=== PATIENT | female | born 2000 | race Caucasian/White ===

== ENCOUNTER → 2020-05-14 | Outpatient (CLI) | payer MEDICAID ==
--- NOTE | 2020-05-14 17:31 | Diagnostic Imaging Report ---
INDICATION: Anatomy survey. TECHNIQUE: Multiple real-time grayscale images were obtained over the gravid uterus. COMPARISON: None FINDINGS: CLINICAL DATES: Gestational age 28 weeks, 4 days, with an SAURABH of 08/02/2020. Number: Single live intrauterine Presentation: Breech Placenta: Posterior/fundal Amniotic Fluid: TATYANA is visually within normal limits. Cervical length: 3.3 cm Cerebellum: visualized Lateral ventricles: visualized Cavum septum pellucidum: visualized Nasal Bone: visualized Face: visualized Stomach: visualized Kidneys: visualized Bladder: visualized Three vessel cord: visualized Cord insertion: visualized 4 chamber heart: visualized outflow tracts: visualized Spine, upper: visualized Spine, lower: visualized Upper extremities: visualized Lower extremities: visualized Hands: Visualized, however not all fingers are well seen. Feet: Visualized, however not all toes are well seen. Biometrical measurements are as follows: Biparietal 6.23 cm, age 25 weeks 2 days. Head circumference 24.20 cm, age 26 weeks 2 days. Abdominal circumference 22.21 cm, age 26 weeks 5 days. Femur length 5.44 cm, age 28.6 weeks 28 days. Sonographic estimate age: 26 weeks 6 days. Sonographic estimated date of delivery: 08/14/20. Estimated Weight: 1049 gm (+/- 153 gm). LMP percentile: 6%. heart rate: 152 beats per minute. number: 1 of 1. IMPRESSION: 1. Single live intrauterine at approximately 26 weeks, 6 days, with an SAURABH of 08/14/2020. These are discordant with the clinical dates. Recommend continued follow-up. 2. No abnormalities are seen at this time. 3. Breech presentation. 4. Visually normal TATYANA; however, total TATYANA was not acquired by the public health social worker during the exam. Recommend either largest vertical pocket or total TATYANA measurements on the follow-up exam. Dictated by: Dictated on workstation # [id number]
== END ==
LOC: RAD 14:18
PROVIDERS: ATTEND Obstetrics & Gynecology
DX: O32.1XX0 Maternal care for breech presentation, not applicable or unspecified (principal); Z3A.26 26 weeks gestation of pregnancy
CPT/HCPCS: 76805

== ENCOUNTER 2020-07-26 02:31 | Inpatient (IN) | payer MEDICAID ==
[~2020-07-26] VITALS: Ht 165.1 cm; Wt 111.4 kg
[2020-07-26] VITALS (50 sets, daily range): BP systolic 96–160; BP diastolic 55–92
[2020-07-26] MEDS ORDERED: D5 LR IV SOLUTION 1,000 ML IV ONE (08:02)
[2020-07-26] MEDS: D5 LR IV SOLUTION 1,000 ML IV SCH ×2 (08:10→16:12)
[2020-07-26] MEDS ORDERED: OXYTOCIN PRE-MIX DRIP 500 ML IV SCH ×2 (08:30→21:00)
[2020-07-26 09:15] LABS: BILIRUBIN,URINE NEGATIVE (NEGATIVE); CLARITY,URINE CLEAR; COLOR,URINE YELLOW; GLUCOSE, URINE (UA) TRACE (NEGATIVE); KETONES,URINE NEGATIVE (NEGATIVE); LEUKOCYTE ESTERASE ,URINE 1+ (NEGATIVE); NITRITE,URINE NEGATIVE (NEGATIVE); PROTEIN,URINE NEGATIVE (NEGATIVE)
[2020-07-26 09:17] LABS: BASOPHILS # (AUTO) 0.1 10^3/uL (0.0-0.1); BASOPHILS % (AUTO) 1 % (0-10); EOSINOPHILS # (AUTO) 0.1 10^3/uL (0.0-0.3); EOSINOPHILS % (AUTO) 1 % (0-10); HEMATOCRIT 35 % (35-52); HEMOGLOBIN 10.9 g/dL (11.5-16.0); LYMPHOCYTES % (AUTO) 17 % (12-44); MEAN CORPUSCULAR HEMOGLOBIN 26 pg (25-34); MEAN CORPUSCULAR HGB CONC 31 g/dL (32-36); MEAN CORPUSCULAR VOLUME 83 fL (80-99); MEAN PLATELET VOLUME 9.7 fL (9.0-12.2); MONOCYTES # (AUTO) 0.9 10^3/uL (0.0-1.0); MONOCYTES % (AUTO) 8 % (0-12); NEUTROPHILS # (AUTO) 8.6 10^3/uL (1.8-7.8); NEUTROPHILS % (AUTO) 72 % (42-75); PLATELET COUNT 359 10^3/uL (130-400); WHITE BLOOD COUNT 11.9 10^3/uL (4.3-11.0)
[2020-07-26 10:03] LABS: BACTERIA,URINE MODERATE /HPF
--- NOTE | 2020-07-26 10:24 | History & Physical-OB ---
OB - Chief Complaint & HPI Date/Time Date of Admission: Date of Admission: July 26, 2020 at 06:23 Date seen by a Provider: July 26, 2020 Time Seen by a Provider: 08:00 Chief Complaint/History OB-Reason for Admission/Chief: Induction of Labor Hx : 2 Hx Para: 1 Expected Date of Delivery: August 02, 2020 Gestational Age in Weeks: 39 Gestational Age in Days: 0 Admission Nurse Assessment Rev: Yes History of Labs GBS neg Allergies and Home Medications Allergies Coded Allergies: No Known Drug Allergies (Unverified , 07/26/20) Home Medications No Active Prescriptions or Reported Meds Patient Home Medication List Home Medication List Reviewed: Yes OB - History Hx of Present Care: Yes Ultrasounds: Normal mid trimester US Obstetrical Complications: None Medical Complications: None Patient Past Medical History n/a OB - Admission Exam Physical Exam Vitals: Vital Signs 07/26/20 07/26/20 08:52 09:50 Temp 36.2 Pulse 94 Resp 18 B/P (MAP) 126/58 (80) O2 Delivery Room Air HEENT: NCAT Heart: Rhythm Normal Lungs: Clear Abdomen: Gravid Extremities: Normal Reflexes: Normal Cervical Dilatation: 3cm Effacement: 75% Station: -1 Membranes: Intact Heart Rate: 130's Accelerations: Accelerations Present Decelerations: No Decelerations Short Term Variability: Present Rehabilitation Therapist Variability: Average (6-25) Contractions on Admission: 6-10 Minutes Apart Intensity: Mild Castañeda Scoring Tool (Modified) Dilation (cm): 3-4cm (2) Effacement (%): 51-79% (2) Descent/Station: -1,0 (2) Cervix Consistency: Soft (2) Cervix Position: Anterior (2) Add 1 point for: Each previous vaginal delivery (1) Castañeda Score: 11 Labs Laboratory Tests Test 07/26/20 06:30 07/26/20 09:04 Range/Units Urine Color YELLOW Urine Clarity CLEAR Urine pH 7.0 5-9 Urine Specific [place] 1.025 H 1.016-1.022 Urine Protein NEGATIVE NEGATIVE Urine Glucose (UA) TRACE H NEGATIVE Urine Ketones NEGATIVE NEGATIVE Urine Nitrite NEGATIVE NEGATIVE Urine Bilirubin NEGATIVE NEGATIVE Urine Urobilinogen 0.2 < = 1.0 MG/DL Urine Leukocyte Esterase 1+ H NEGATIVE Urine RBC (Auto) TRACE-I NEGATIVE Urine RBC NONE /HPF Urine WBC 10-25 H /HPF Urine Squamous Epithelial Cells 5-10 /HPF Urine Crystals NONE /LPF Urine Bacteria MODERATE H /HPF Urine Casts NONE /LPF Urine Mucus NEGATIVE /LPF Urine Culture Indicated YES White Blood Count 11.9 H 4.3-11.0 10^3/uL Red Blood Count 4.24 3.80-5.11 10^6/uL Hemoglobin 10.9 L 11.5-16.0 g/dL Hematocrit 35 35-52 % Mean Corpuscular Volume 83 80-99 fL Mean Corpuscular Hemoglobin 26 25-34 pg Mean Corpuscular Hemoglobin Concent 31 L 32-36 g/dL Red Cell Distribution Width 17.4 H 10.0-14.5 % Platelet Count 359 130-400 10^3/uL Mean Platelet Volume 9.7 9.0-12.2 fL Immature Granulocyte % (Auto) 2 % Neutrophils (%) (Auto) 72 42-75 % Lymphocytes (%) (Auto) 17 12-44 % Monocytes (%) (Auto) 8 0-12 % Eosinophils (%) (Auto) 1 0-10 % Basophils (%) (Auto) 1 0-10 % Neutrophils # (Auto) 8.6 H 1.8-7.8 10^3/uL Lymphocytes # (Auto) 2.0 1.0-4.0 10^3/uL Monocytes # (Auto) 0.9 0.0-1.0 10^3/uL Eosinophils # (Auto) 0.1 0.0-0.3 10^3/uL Basophils # (Auto) 0.1 0.0-0.1 10^3/uL Immature Granulocyte # (Auto) 0.2 H 0.0-0.1 10^3/uL OB - Assessment/Plan/Diagnosis Assessment Assessment: induction of labor Admission Dx 19 yo @ 39 weeks Elective IOL GBS neg Admission Status: Inpatient Order (span 2 midnights) Reason for Inpatient Admission: Induction at 39 weeks Plan Plan: Induction Induction Method: per Pitocin Protocol WOODROW PRUETT DO July 26, 2020 10:24
[2020-07-26] MEDS ORDERED: CATHETER FLUSH 10 ML SYR IV SCH (14:00)
[2020-07-26] MEDS ORDERED: LIDOCAINE/EPI 2% 1:200,00 (XYLOCAINE) 20 ML VIAL ONE (19:18)
[2020-07-26] MEDS ORDERED: TETANUS,DIPTH,PERTUSS P/F (BOOSTRIX) 0.5 ML VIAL IM ONE (21:00)
[2020-07-26] MEDS ORDERED: BENZOCAINE/MENTHOL (DERMOPLAST) 56 ML CAN TP PRN (21:00)
[2020-07-26] MEDS ORDERED: MEASLES,MUMPS,RUBELLA 1 EA INJ SQ ONE (21:00)
[2020-07-26] MEDS ORDERED: HYDROcodone/APAP 5 MG/325 MG (LORTAB) TAB PO PRN (21:00)
[2020-07-26] MEDS ORDERED: WITCH HAZEL(TUCKS) 40 EA JAR TOP PRN (21:00)
[2020-07-26] MEDS ORDERED: DIBUCAINE 1% OINTMENT 30 GM TUBE TOP PRN (21:00)
--- NOTE | 2020-07-26 21:01 | OB Labor & Delivery Record ---
L&D History Date of Service Date of Service: July 26, 2020 History Expected Date of Delivery: August 02, 2020 Gestational Age in Weeks: 39 Hx : 2 Hx Para: 1 Complications Events: Routine care Operative Indications (Cesarea: N/A-Vaginal Delivery Intrapartal Events: None L&D Stage1 Stage One Onset of Labor - Date: July 26, 2020 Monitors and Tracing Monitor Mode: Internal Heart Rate: 135 Monitor Accelerations: Uniform Monitor Decelerations: None Station: -1 Chemistry Tutor Variability: Average (6-10) Short Term Variability: Present Presentation: Vertex Vital Signs VS - Last 72 Hours, by Label 07/26/20 07/26/20 07/26/20 07/26/20 08:52 09:20 09:34 09:50 Temp 36.2 Pulse 139 105 98 94 Resp 18 18 18 18 B/P (MAP) 132/87 (102) 126/77 (93) 112/64 (80) 126/58 (80) O2 Delivery Room Air Room Air Room Air Room Air 07/26/20 07/26/20 07/26/20 07/26/20 10:04 10:20 10:35 11:02 Pulse 104 96 105 90 Resp 18 18 18 18 B/P (MAP) 126/60 (82) 113/60 (77) 119/59 (79) 115/68 (84) O2 Delivery Room Air Room Air Room Air Room Air 07/26/20 07/26/20 07/26/20 07/26/20 11:22 11:35 11:50 12:07 Pulse 93 94 94 94 Resp 18 18 18 18 B/P (MAP) 111/55 (73) 110/59 (76) 116/67 (83) 120/82 (95) O2 Delivery Room Air Room Air Room Air Room Air 07/26/20 07/26/20 07/26/20 07/26/20 12:20 12:33 12:40 12:49 Temp 36.4 Pulse 110 93 107 Resp 18 18 18 B/P (MAP) 112/70 (84) 116/71 (86) 109/60 (76) O2 Delivery Room Air Room Air Room Air 07/26/20 07/26/20 07/26/20 07/26/20 13:05 13:20 13:38 13:50 Temp 36.6 Pulse 111 111 105 108 Resp 18 18 18 18 B/P (MAP) 109/66 (80) 96/58 (71) 107/62 (77) 113/57 (75) O2 Delivery Room Air Room Air Room Air Room Air 07/26/20 07/26/20 07/26/20 07/26/20 14:04 14:20 14:38 14:50 Pulse 98 105 111 100 Resp 18 18 18 18 B/P (MAP) 120/63 (82) 136/80 (98) 121/78 (92) 115/68 (84) O2 Delivery Room Air Room Air Room Air Room Air 07/26/20 07/26/20 07/26/20 07/26/20 15:13 15:21 15:35 15:50 Pulse 105 95 95 89 Resp 18 18 18 18 B/P (MAP) 120/59 (79) 116/66 (83) 118/65 (82) 114/65 (81) O2 Delivery Room Air Room Air Room Air Room Air 07/26/20 07/26/20 07/26/20 07/26/20 16:05 16:21 16:50 17:05 Temp 36.5 Pulse 100 96 101 86 Resp 18 18 18 18 B/P (MAP) 113/77 (89) 115/65 (82) 110/69 (83) 122/69 (86) O2 Delivery Room Air Room Air Room Air Room Air 07/26/20 07/26/20 07/26/20 07/26/20 17:20 17:34 17:44 17:50 Temp 36.3 Pulse 93 96 120 100 Resp 18 18 18 18 B/P (MAP) 133/75 (94) 122/75 (91) 120/81 (94) 125/72 (89) O2 Delivery Room Air Room Air Room Air Room Air 07/26/20 07/26/20 07/26/20 07/26/20 17:54 18:04 18:12 18:20 Temp 36.6 36.5 Pulse 117 120 Resp 18 18 B/P (MAP) 127/79 (95) 134/72 (92) O2 Delivery Room Air Room Air 07/26/20 07/26/20 18:35 18:51 Pulse 105 97 Resp 18 18 B/P (MAP) 121/71 (88) 112/70 (84) O2 Delivery Room Air Room Air Rupture of Membranes Spontaneous Ruture of Membrane: No Amniotic Membrane Rupture Time: 1652 Amniotic Membrane Fluid Desc.: Clear Vaginal Bleeding Description: Normal Show Progress/Notes Patient admitted for elective IOL, AROM and pitocin augmentation used. Without an epidural she progressed to complete and +2 station when I arrived. L&D Stage2 Stage Two Stage II Date: July 26, 2020 Monitors and Tracing Monitor Mode: Internal Heart Rate: 135 Monitor Accelerations: Uniform Monitor Decelerations: Variable Jail Variability: Average (6-10) Short Term Variability: Present Position: Right Occiput Anterior Presentation: Vertex Cord Descript/Complications Cord Vessel Description: 3 Vessels Delivery Type Delivery Method: Spontaneous Vaginal Anterior Shoulder: Right Episiotomy/Perineal Laceration Laceraction(s)/Extensions: No Condition of Infant Delivery 1 minute Comment: 8 5 minute Comment: 9 Notes Live female infant weight 7lbs 12oz Condition of Infant Condition of Infant: Living Exam: No Observed Abnormalities Resuscitation Resuscitation: N/A - Spontaneous Resp L&D Stage3 Stage Three Stage III Date: July 26, 2020 Pictocin Pitocin Administration mu/min: 18 Pitocin ml/hr: 18 Pitocin Administration Comment: 1705 PITOCIN INCREASED. Placenta Delivery Placenta Delivery: Spontaneous Delivery Summary Summary Estimated blood loss (mL): 300 Attending at delivery: Woodrow Pruett DO Condition of Delivery Examined: Cervix Examined, Uterus Explored Post Hemorrhage: No Condition of Mother stable Condition of Infant (s) stable WOODROW PRUETT DO July 26, 2020 21:01
--- NOTE | 2020-07-26 21:03 | Discharge Inst-Women's Service ---
Discharge Inst-Women's Serv Depart Medication/Instructions New, Converted or Re-Newed RX: RX on Chart Problems Reviewed?: Yes Consults/Follow Up Additional Follow Up: Yes Activity Activity: Activity as Tolerated Driving Instructions: No Driving for 1 Week NO SMOKING: NO SMOKING Nothing Inside Vagina: No Douching, No Brandt, No Tampons Diet Discharge Diet: No Restrictions Symptoms to Report to : Bleeding Excessive, Pain Increased, Fever Over 101 Degrees F, Vaginal Bleeding Increase, Questions/Concerns For Any Problems or Questions: Contact Your Physician WOODROW PRUETT DO July 26, 2020 21:03
[2020-07-26] MEDS ORDERED: BENZ78AE5 TP (21:05)
[2020-07-26] MEDS ORDERED: DCS100C PO (21:05)
[2020-07-26] MEDS ORDERED: ACHD5005 PO (21:05)
[2020-07-26] MEDS ORDERED: IBUP-844 PO (21:05)
[2020-07-26] MEDS ORDERED: DOCUSATE SODIUM 100 MG (COLACE) CAP PO ONE (21:09)
[2020-07-26] MEDS ORDERED: IBUPROFEN 600 MG (MOTRIN) TAB PO ONE (21:10)
[2020-07-26] MEDS ORDERED: IBUPROFEN 800 MG (MOTRIN) TAB PO ONE (21:10)
[2020-07-26] MEDS ORDERED: BENZOCAINE/MENTHOL (DERMOPLAST) 56 ML CAN TP ONE (21:10)
[2020-07-26] MEDS ORDERED: WITCH HAZEL(TUCKS) 40 EA JAR ONE (21:10)
[2020-07-26] MEDS: IBUPROFEN 600 MG (MOTRIN) TAB PO SCH (21:22)
[2020-07-26] MEDS: DOCUSATE SODIUM 100 MG (COLACE) CAP PO SCH (21:22)
[2020-07-27 03:23] VITALS: BP 102/58
[2020-07-27] MEDS: IBUPROFEN 600 MG (MOTRIN) TAB PO SCH ×4 (03:32→22:09)
[2020-07-27] MEDS: CATHETER FLUSH 10 ML SYR IV SCH ×2 (05:25→05:26)
[2020-07-27] MEDS: PRENATAL VITAMIN 1 EA TAB PO SCH (06:36)
--- NOTE | 2020-07-27 07:10 | Postpartum Progress Note ---
Note Note Day # 1 Subjective: Patient is without complaints. Ambulating, voiding. Tolerating a regular diet without nausea or vomiting. Normal lochia. Pain is well controlled with oral pain medications. Objective: Physical Exam: General - Alert and oriented, no apparent distress Abdomen - Soft, appropriately tender to palpation, non-distended, fundus firm at umbilicus Extremities - no edema, negative Eliza's bilaterally Assessment: PPD 1 NVD PP labs pending Plan: Routine care. Encourage breast feeding. Encourage ambulation. Ferrous sulfate supplementation. Plan for discharge tomorrow Vitals - Labs Vital Signs - I&O Vital Signs Date Time Temp Pulse Resp B/P (MAP) Pulse Ox O2 Delivery O2 Flow Rate FiO2 07/27/20 03:23 36.6 97 18 102/58 (73) 96 Room Air 07/26/20 23:26 36.3 88 18 130/60 (83) 98 Room Air 07/26/20 22:09 90 18 123/72 (89) Room Air 07/26/20 21:36 36.5 86 18 129/73 (91) Room Air 07/26/20 21:20 107 18 136/67 (90) Room Air 07/26/20 21:05 101 18 134/64 (87) Room Air 07/26/20 20:50 36.2 110 18 135/92 (106) Room Air 07/26/20 20:30 131 18 136/85 (102) Room Air 07/26/20 20:20 102 18 130/81 (97) Room Air 07/26/20 19:50 116 18 127/71 (89) Room Air 07/26/20 19:40 111 18 126/74 (91) Room Air 07/26/20 19:05 36.7 104 18 160/63 (95) Room Air 07/26/20 18:51 97 18 112/70 (84) Room Air 07/26/20 18:35 105 18 121/71 (88) Room Air 07/26/20 18:20 120 18 134/72 (92) Room Air 07/26/20 18:12 36.5 07/26/20 18:04 117 18 127/79 (95) Room Air 07/26/20 17:54 36.6 07/26/20 17:50 100 18 125/72 (89) Room Air 07/26/20 17:44 36.3 120 18 120/81 (94) Room Air 07/26/20 17:34 96 18 122/75 (91) Room Air 07/26/20 17:20 93 18 133/75 (94) Room Air 07/26/20 17:05 86 18 122/69 (86) Room Air 07/26/20 16:50 101 18 110/69 (83) Room Air 07/26/20 16:21 96 18 115/65 (82) Room Air 07/26/20 16:05 36.5 100 18 113/77 (89) Room Air 07/26/20 15:50 89 18 114/65 (81) Room Air 07/26/20 15:35 95 18 118/65 (82) Room Air 07/26/20 15:21 95 18 116/66 (83) Room Air 07/26/20 15:13 105 18 120/59 (79) Room Air 07/26/20 14:50 100 18 115/68 (84) Room Air 07/26/20 14:38 111 18 121/78 (92) Room Air 07/26/20 14:20 105 18 136/80 (98) Room Air 07/26/20 14:04 98 18 120/63 (82) Room Air 07/26/20 13:50 108 18 113/57 (75) Room Air 07/26/20 13:38 36.6 105 18 107/62 (77) Room Air 07/26/20 13:20 111 18 96/58 (71) Room Air 07/26/20 13:05 111 18 109/66 (80) Room Air 07/26/20 12:49 107 18 109/60 (76) Room Air 07/26/20 12:40 93 18 116/71 (86) Room Air 07/26/20 12:33 36.4 07/26/20 12:20 110 18 112/70 (84) Room Air 07/26/20 12:07 94 18 120/82 (95) Room Air 07/26/20 11:50 94 18 116/67 (83) Room Air 07/26/20 11:35 94 18 110/59 (76) Room Air 07/26/20 11:22 93 18 111/55 (73) Room Air 07/26/20 11:02 90 18 115/68 (84) Room Air 07/26/20 10:35 105 18 119/59 (79) Room Air 07/26/20 10:20 96 18 113/60 (77) Room Air 07/26/20 10:04 104 18 126/60 (82) Room Air 07/26/20 09:50 94 18 126/58 (80) Room Air 07/26/20 09:34 98 18 112/64 (80) Room Air 07/26/20 09:20 105 18 126/77 (93) Room Air 07/26/20 08:52 36.2 139 18 132/87 (102) Room Air I & O 07/27/20 07:00 Intake Total 2800 ml Balance 2800 ml Labs Laboratory Tests 07/26/20 09:04: White Blood Count 11.9H, Red Blood Count 4.24, Hemoglobin 10.9L, Hematocrit 35, Mean Corpuscular Volume 83, Mean Corpuscular Hemoglobin 26, Mean Corpuscular Hemoglobin Concent 31L, Red Cell Distribution Width 17.4H, Platelet Count 359, Mean Platelet Volume 9.7, Immature Granulocyte % (Auto) 2, Neutrophils (%) (Auto) 72, Lymphocytes (%) (Auto) 17, Monocytes (%) (Auto) 8, Eosinophils (%) (Auto) 1, Basophils (%) (Auto) 1, Neutrophils # (Auto) 8.6H, Lymphocytes # (Auto) 2.0, Monocytes # (Auto) 0.9, Eosinophils # (Auto) 0.1, Basophils # (Auto) 0.1, Immature Granulocyte # (Auto) 0.2H WOODROW PREUTT DO July 27, 2020 07:10
[2020-07-27 07:55] LABS: BASOPHILS % (AUTO) 0 % (0-10); EOSINOPHILS # (AUTO) 0.1 10^3/uL (0.0-0.3); EOSINOPHILS % (AUTO) 1 % (0-10); HEMATOCRIT 33 % (35-52); LYMPHOCYTES # (AUTO) 2.8 10^3/uL (1.0-4.0); LYMPHOCYTES % (AUTO) 16 % (12-44); MEAN CORPUSCULAR HEMOGLOBIN 25 pg (25-34); MEAN CORPUSCULAR HGB CONC 30 g/dL (32-36); MEAN CORPUSCULAR VOLUME 84 fL (80-99); MONOCYTES # (AUTO) 1.2 10^3/uL (0.0-1.0); MONOCYTES % (AUTO) 7 % (0-12); NEUTROPHILS # (AUTO) 12.9 10^3/uL (1.8-7.8); NEUTROPHILS % (AUTO) 75 % (42-75); PLATELET COUNT 328 10^3/uL (130-400); WHITE BLOOD COUNT 17.2 10^3/uL (4.3-11.0)
[2020-07-27 08:00] VITALS: BP 124/74
[2020-07-27] MEDS: DOCUSATE SODIUM 100 MG (COLACE) CAP PO SCH ×2 (08:34→20:05)
[2020-07-27] MEDS ORDERED: DOCUSATE CALCIUM 240 MG (SURFAK) CAP PO SCH (09:00)
[2020-07-27] MEDS: D5 LR IV SOLUTION 1,000 ML IV SCH (09:16)
[2020-07-27 12:00] VITALS: BP 110/67
[2020-07-27 16:30] VITALS: BP 116/66
[2020-07-27 19:51] VITALS: BP 127/62
[2020-07-28 01:35] VITALS: BP 118/59
[2020-07-28 04:14] VITALS: BP 127/52
[2020-07-28] MEDS: IBUPROFEN 600 MG (MOTRIN) TAB PO SCH ×2 (04:15→10:27)
[2020-07-28 08:59] VITALS: BP 119/78
--- NOTE | 2020-07-28 10:24 | Postpartum Progress Note ---
Note Note Day # 2 Subjective: Patient is without complaints. Ambulating, voiding. Tolerating a regular diet without nausea or vomiting. Normal lochia. Pain is well controlled with oral pain medications. Objective: Physical Exam: General - Alert and oriented, no apparent distress Abdomen - Soft, appropriately tender to palpation, non-distended, fundus firm at umbilicus Extremities - no edema, negative Eliza's bilaterally Assessment: PPD 2 NVD Plan: Routine care. Encourage breast feeding. Encourage ambulation. Ferrous sulfate supplementation. Plan for discharge today Vitals - Labs Vital Signs - I&O Vital Signs Date Time Temp Pulse Resp B/P (MAP) Pulse Ox O2 Delivery O2 Flow Rate FiO2 07/28/20 04:14 36.6 99 18 127/52 (77) 100 Room Air 07/28/20 01:35 36.8 98 18 118/59 (78) 96 Room Air 07/27/20 19:51 35.8 80 18 127/62 (83) 98 Room Air 07/27/20 16:30 36.6 101 18 116/66 (83) 97 Room Air 07/27/20 12:00 36.6 88 18 110/67 (81) 97 Room Air Labs Microbiology 07/26/20 Urine Culture - Final, Complete NO GROWTH WOODROW PRUETT DO July 28, 2020 10:24
[2020-07-28] MEDS: PRENATAL VITAMIN 1 EA TAB PO SCH (10:27)
[2020-07-28] MEDS: DOCUSATE SODIUM 100 MG (COLACE) CAP PO SCH (10:27)
== END 2020-07-28 11:40 | disposition home or self-care (01) | DRG 807 ==
LOC: LDRP 06:23
PROVIDERS: ADMIT Obstetrics & Gynecology; ATTEND Obstetrics & Gynecology
PROC: 10E0XZZ Delivery of Products of Conception, External Approach (ICD-10-PCS; principal; 2020-07-26)
PROC: 10907ZC Drainage of Amniotic Fluid, Therapeutic from Products of Conception, Via Natural or Artificial Opening (ICD-10-PCS; 2020-07-26)
DX: O80 Encounter for full-term uncomplicated delivery (principal); Z37.0 Single live birth; Z3A.39 39 weeks gestation of pregnancy
CPT/HCPCS: 36415; 81000; 85025; 86850; 86900; 86901; 87088